=== PATIENT | male | born 1980 | race Caucasian/White ===

== ENCOUNTER 2017-04-26 04:07 | Emergency (ER) | payer BC ==
[2017-04-26] MEDS ORDERED: ALBUTEROL SULFATE/IPRATROPIUM 3 ML NEBU IH ONE ×2 (04:35→04:36)
[2017-04-26] MEDS ORDERED: METHYLPREDNISOLONE SOD SUCC/PF 125 MG/2 ML VIAL IM ONE (04:36)
[2017-04-26] MEDS ORDERED: METHYLPREDNISOLONE SOD SUCC/PF 125 MG/2 ML VIAL ONE (04:36)
[2017-04-26] MEDS ORDERED: ALBUTEROL SULFATE 2.5 MG/0.5 ML VIAL.NEB IH ONE ×2 (06:53→06:54)
[2017-04-26 07:13] VITALS: BP 117/76
--- NOTE | 2017-04-26 08:06 | ERNOTE ---
Time Seen by Provider: 04/26/17 04:20 Stated Complaint: ASTHMA Presenting Symptoms:: cough, other - Wheezing, stuffy nose Source: patient, family, RN notes reviewed Exam Limitations: no limitations Immunizations: IMMUNIZATION HX Immunizations Up to Date Yes History of Influenza Vaccine No Hx Pneumococcal Vaccination No Allergies/Adverse Reactions: Allergies amoxicillin Adverse Reaction (Verified 08/13/15 20:04) Home Medications: HOME MEDICATIONS Albuterol Sulfate [Ventolin Hfa] 18 gm IH 08/13/15 [Last Taken Unknown] Albuterol Sulfate [Proair Respiclick] 90 mcg IH Q4H PRN #1 aer.pow.ba 04/26/17 [ Last Taken Unknown] Cephalexin 500 mg PO Q6H #40 tab 04/26/17 [Last Taken Unknown] Ipratropium/Albuterol Sulfate [Combivent Respimat Inhal Mcgee] 1 puff IH QID PRN #1 inhaler 04/26/17 [Last Taken Unknown] Methylprednisolone [Medrol Dosepak] 4 mg PO QID #21 tab 04/26/17 [Last Taken Unknown] - History of Present Ilness Narrative: Patient complains of worsening asthma symptoms and cold symptoms since Wednesday. He notes that he is using his inhaler a lot more than he used to. He states that he was pretty symptomatic as a child, and then as an adult, he was fine up until 2 years ago when he had pneumonia. Now he needs his inhalers regularly, and seems to catch infections a lot. Timing: constant, getting worse Severity: moderate Frequency/Possible Cause: Reports: frequent episodes Modifying Factors - Improves: Reports: albuterol Modifying Factors - Worsens: Reports: activity, coughing, deep breath, lying down Associated Symptoms: Reports: cough, shortness of breath, wheezing, nasal congestion, nasal drainage, dizziness, lightheadedness, sore throat Review of Systems - Review of Systems Constitutional: Present: recent illness, weakness, malaise EYE: Present: no symptoms reported ENT: Present: nose congestion, nasal drainage, sore throat. Absent: ear pain Respiratory: Present: shortness of breath, cough Cardiology: Present: palpitations Gastrointestinal/Abdominal: Absent: nausea, vomiting, diarrhea, abdominal pain Genitourinary: Present: no symptoms reported Musculoskeletal: Present: no symptoms reported Skin: Present: no symptoms reported Neurological: Present: no symptoms reported Endocrine: Present: no symptoms reported Hematologic/Lymphatic: Present: no symptoms reported Psych: Present: no symptoms reported - Patient's Past Medical History Patient History - Medical: No pertinent hx Patient History - Cardiac/Respiratory: Asthma Patient History - Cancer: No Hx of Cancer Patient History - Surgical Procedures: No surgical history Patient History - Other: None - Social History Living Situations: significant other Abuse History: No History of abuse Psych History: No pertinent hx Smoking Status: Former smoker Have you smoked in the past 12 months: No Do you dip or chew tobacco: No Smoking Stop Date: 04/26/08 Patient requests Smoking Cessation Consult: No Initiate information on Smoking Cessation: No Alcohol Use: rarely Drug Use: none - Immunizations Immunizations Up to Date: Yes Hx Pneumococcal Vaccination: No History of Influenza Vaccine: No Physical Exam - Physical Exam General Appearance: Present: wd/wn, alert, mild distress Head Exam: Present: normal inspection, no evidence of injury Eye Exam: Normal inspection: bilateral, PERRL: bilateral, EOMI: bilateral Ears, Nose, Throat: Present: normal except -, nasal congestion, sinus pain/ drainage Neck: Present: normal inspection, nontender Respiratory: Present: no respiratory distress, no accessory muscle use, wheezing Cardiovascular/Chest: Present: regular rate, rhythm, no murmur Gastrointestinal/Abdominal: Present: normal bowel sounds, nontender, nondistended, soft Back Exam: Present: normal inspection, normal range of motion Extremity Exam: Present: normal inspection, non-tender, normal range of motion, no edema Neurological Exam: Present: alert, oriented, normal mood/affect, no motor/ sensory deficits Skin Exam: Present: normal color, warm/dry ED Progress - Vital Signs Patient's Vital Signs:: I have reviewed the patient's vital signs. Vital Signs: Vital Signs 04/26/17 04/26/17 04/26/17 04:13 04:26 04:45 Temperature 37.3 C Pulse Rate 104 H 103 H 107 H Respiratory 18 11 L Rate Blood Pressure 140/82 O2 Sat by Pulse 93 95 Oximetry 04/26/17 04/26/17 04/26/17 05:14 06:05 06:56 Temperature Pulse Rate 98 96 99 Respiratory 13 14 13 Rate Blood Pressure 127/80 133/80 O2 Sat by Pulse 92 92 90 Oximetry 04/26/17 04/26/17 06:59 07:13 Temperature Pulse Rate 99 96 Respiratory 12 11 L Rate Blood Pressure 138/78 117/76 O2 Sat by Pulse 90 92 Oximetry - X-Ray X-Ray #1 X-Ray: chest Interpretation: Reviewed by me X-ray Comments: [facility] PATIENT RADIOLOGY STUDY REPORT Patient Patient Name:DEANGELO ALMARAZ Date: 1980 Sex: M Order Number: [id number] Unique Exam ID: [id number] Exam Requested: CXRPALAT - Chest PA Lateral * Date Scheduled: 04-26-2017 06:16 AM Study Priority: Requesting Service: Requesting Physician: Neisha Salazar Reason for Exam: shortness of breath Radiological Report : [place] [address] NAME: DEANGELO ALMARAZ : 1980 MR #: [id number] CC: LOC: ER ADM DATE: X-RAY REPORT [id number] RAD/Chest PA Lateral * Exam Date: 04/26/2017 06:16 Ordering Physician: Neisha Salazar Indication: shortness of breath asthma Comparison: January 22, 2016 Technique: Chest PA Lateral * Findings: The lungs demonstrate no focal consolidation or acute abnormality. There is no pleural effusion or pneumothorax. Cardiac silhouette and pulmonary vasculature are normal. The osseous structures are within normal limits for age. IMPRESSION: No acute cardiopulmonary process detected Electronically signed by Kameron Germain M.D.. Kameron Germain MD Dict: 04/26/17716 Typed: 04/26/17716/ 04/26/1718 04/26/17720 , Approved by: Kameron Germain Approval Date: 04-26-2017 Approval Time: 07:17 AM - Progress/Reassessment Chief Complaint: Asthma Progress:: Improved Progress Note-Subjective: 04/26/17 08:13 Solumedrol 125 mg IM Rocephin 1 gm IM with lidocaine Duoneb Albuterol Neb Departure Clinical Impression: Asthma attack Qualifiers: Asthma severity: moderate Asthma persistence: persistent Qualified Code(s): J45.41 - Moderate persistent asthma with (acute) exacerbation Acute bronchitis Qualifiers: Bronchitis organism: unspecified organism Qualified Code(s): J20.9 - Acute bronchitis, unspecified - Departure Disposition: Home self-care Condition: Good Instructions: Asthma, Acute Bronchospasm, Acute Bronchitis Referrals: Sola Ta MD [Non Staff Physicians] - (7-10 days, sooner if you do not improve.) Prescriptions: Albuterol Sulfate [Proair Respiclick] 90 mcg IH Q4H PRN #1 aer.pow.ba PRN Reason: Wheezing Cephalexin 500 mg PO Q6H #40 tab Ipratropium/Albuterol Sulfate [Combivent Respimat Inhal Mcgee] 1 puff IH QID PRN #1 inhaler PRN Reason: Wheezing Methylprednisolone [Medrol Dosepak] 4 mg PO QID #21 tab
== END 2017-04-26 08:14 | disposition home or self-care (01) ==
LOC: ER 04:07
DX: J45.41 Moderate persistent asthma with (acute) exacerbation (principal); J20.9 Acute bronchitis, unspecified